=== PATIENT | male | born 1990 | race American Indian/Alaskan Native ===

== ENCOUNTER 2017-03-30 15:57 | Observation (INO) | payer SELFPAY ==
[2017-03-30] MEDS ORDERED: Sodium Chloride 0.9% 1,000 ML IV STA ×2 (16:15→18:07)
[2017-03-30 16:36] LABS: VENOUS BLOOD GAS BASE EXCESS 0.7 mmol/L (0.0-2.0); VENOUS BLOOD GAS PCO2 43 mmHg (40-60); VENOUS BLOOD PH 7.39 (7.32-7.43)
[2017-03-30 16:37] LABS: BASO % 0.2 % (0.0-2.0); EOS % 0.2 % (0.0-4.0); HEMATOCRIT 41.1 % (35.0-51.0); LYMPH # 0.9 K/uL (1.0-4.3); LYMPH % 9.4 % (20.0-40.0); MEAN CELL VOLUME 88.2 fl (80.0-94.0); MEAN CORPUSCULAR HGB CONC 32.9 g/dL (33.0-37.0); MEAN PLATELET VOLUME 6.9 fl (7.2-11.7); MONO # 1.3 K/uL (0.0-0.8); MONO % 13.5 % (0.0-10.0); NEUT # 7.3 K/uL (1.8-7.0); NEUT % 76.7 % (50.0-75.0); NRBC % 0.1 % (0.0-0.0); PLATELET COUNT 358 K/uL (130-400); RED CELL DISTRIBUTION WIDTH 13.2 % (11.5-14.5); WHITE BLOOD COUNT 9.5 K/uL (4.8-10.8)
[2017-03-30 16:48] LABS: ALB/GLOB RATIO 1.3 (1.0-2.1); ALKALINE PHOSPHATASE 74 U/L (38-126); ALT/SGPT 43 U/L (21-72); AST/SGOT 33 U/L (17-59); BILIRUBIN,TOTAL 0.8 mg/dl (0.2-1.3); BLOOD UREA NITROGEN 15 mg/dl (9-20); CARBON DIOXIDE 22 mmol/L (22-30); CHLORIDE 102 mmol/L (98-107); GFR AFRICAN-AMERICAN > 60; GLUCOSE,RANDOM 128 mg/dL (75-110); LIPASE 96 U/L (23-300); POTASSIUM 3.9 MMOL/L (3.6-5.0); SODIUM 142 mmol/l (132-148); TOTAL PROTEIN 8.1 G/DL (6.3-8.2)
--- NOTE | 2017-03-30 16:57 | ED PDOC ---
HPI: Abdomen <Joe Feng - Last Filed: 03/31/17 00:09> Chief Complaint (Provider): Diarrhea History Per: Patient History/Exam Limitations: no limitations Onset/Duration Of Symptoms: Hrs Outside of [place] travel?: No Current Symptoms Are (Timing): Still Present Context: Food Location Of Pain/Discomfort: Diffuse Associated Symptoms: Diarrhea, Loss Of Appetite. denies: Fever, Chills, Nausea , Vomiting Alleviating Factors: None. denies: OTC Meds Last Bowel Movement: Today <Ramya Giron - Last Filed: 03/31/17 16:21> Time Seen by Provider: 03/30/17 16:06 Chief Complaint (Nursing): Abdominal Pain Additional Complaint(s): The patient is a 26yo male, presents to the ED for evaluation of watery, non- bloody diarrhea x 15 episodes, since 3AM today. Patient also reports associated crampy abdominal pain, fever, and decreased appetite; pt states he took Advil for his symptoms with no relief. He denies any associated nausea, vomiting. Patient also has additional complaints of generalized malaise, fatigue, weakness , headache. Patient reports he ate some [employer] prior to the onset of his symptoms; additionally states his boyfriend ate similar food and has an "upset stomach" but his symptoms are not as worse as the patient's. He denies any recent foreign travels and at present, offers no additional medical complaints. PCP: None provided (Ramya Giron) Past Medical History <Joe Feng [place] - Last Filed: 03/31/17 00:09> Reviewed: Historical Data, Nursing Documentation, Vital Signs - Medical History PMH: No Chronic Diseases - Surgical History Other surgeries: knee surgery - Family History Family History: States: No Known Family Hx - Living Arrangements Living Arrangements: Alone - Social History Current smoker - smoking cessation education provided: No Alcohol: Occasional Drugs: Denies <Ramya Giron - Last Filed: 03/31/17 16:21> Vital Signs: Last Vital Signs Temp 101.4 F H 03/30/17 22:04 Pulse 94 H 03/30/17 18:03 Resp 26 H 03/30/17 18:03 BP 106/55 L 03/30/17 18:03 Pulse Ox 99 03/31/17 05:20 - Home Medications Home Medications: Ambulatory Orders Medication Instructions Recorded Dicyclomine [Bentyl] 20 mg PO Q12 PRN #20 tab 03/31/17 - Allergies Allergies/Adverse Reactions: Allergies Allergy/AdvReac Type Severity Reaction Status Date / Time No Known Allergies Allergy Verified 03/30/17 16:06 Review of Systems ROS Statement: Except As Marked, All Systems Reviewed And Found Negative Constitutional: Positive for: Fever, Weakness, Malaise Gastrointestinal: Positive for: Abdominal Pain, Diarrhea. Negative for: Nausea , Vomiting Neurological: Positive for: Headache <Ramya Giron - Last Filed: 03/31/17 16:21> Physical Exam - Reviewed Nursing Documentation Reviewed: Yes Vital Signs Reviewed: Yes - Physical Exam Appears: Positive for: Non-toxic, In Acute Distress (mild painful distress and tired appearing) Head Exam: Positive for: ATRAUMATIC, NORMOCEPHALIC Skin: Positive for: Warm, Dry Eye Exam: Positive for: EOMI, PERRL ENT: Positive for: Other (tacky muc membranes). Negative for: Pharyngeal Erythema, Tonsillar Exudate Neck: Positive for: Painless ROM, Supple Cardiovascular/Chest: Positive for: Chest Non Tender, Tachycardia. Negative for : Murmur Respiratory: Positive for: Normal Breath Sounds. Negative for: Wheezing Gastrointestinal/Abdominal: Positive for: Bowel Sounds, Soft, Tenderness ( diffuse). Negative for: Mass, Distended, Guarding, Rebound Back: Positive for: Normal Inspection. Negative for: Decreased ROM Extremity: Positive for: Normal ROM. Negative for: Deformity Lymphatic: Negative for: Adenopathy Neurologic/Psych: Positive for: Alert. Negative for: Motor/Sensory Deficits <Ramya Giron - Last Filed: 03/31/17 16:21> - Laboratory Results Result Diagrams: 03/30/17 16:30 03/30/17 16:30 <Joe Feng - Last Filed: 03/31/17 00:09> - Laboratory Results Result Diagrams: 03/30/17 16:30 03/30/17 16:30 - ECG O2 Sat by Pulse Oximetry: 99 (RA) Pulse Ox Interpretation: Normal <Ramya Giron - Last Filed: 03/31/17 16:21> ED OBSERVATION <Ramya Giron - Last Filed: 03/31/17 16:21> - Observation admission statement Patient is being placed in observation because:: Abdominal pain dehydration with need for serial abdominal exams and IV hydration (Ramya Giron) - Progress Note Progress Note: Time: 1614 Impression: Diarrhea, abdominal pain, fever Differential: Dehydration, sepsis, enteritis, colitis Plan: -- Labs -- IV Fluids -- Benadryl 50 mg PO -- Tylenol 975 mg PO -- Toradol 15 mg IV 1800 Patient reports feels better but continues to have some pain. Also has not been able to urinate yet. Additional fluids ordered. Bloodwork demonstrate dehydration. No emergently significant abnormalities. 2100 Pt reports feeling weak. Still unable to urinate, but has had large amount of watery diarrhea in ER. 2200 Fever and pain returned. CT ordered as well as antipyretics. [address] Feng pending CT, reassessment and final ER disposition Scribe Attestation: Documented by Alysia Calles, acting as a scribe for Ramya Giron MD. Provider Scribe Attestation: All medical record entries made by the Scribe were at my direction and personally dictated by me. I have reviewed the chart and agree that the record accurately reflects my personal performance of the history, physical exam, medical decision making, and the department course for this patient. I have also personally directed, reviewed, and agree with the discharge instructions and disposition. (Ramya Giron) Disposition - Patient ED Disposition Is Patient to be Admitted: Transfer of Care - Disposition Disposition Time: 00:00 <Joe Feng - Last Filed: 03/31/17 00:09> - Disposition Disposition Time: 17:10 Patient Signed Over To: Joe Feng <Ramya Giron - Last Filed: 03/31/17 16:21> - Clinical Impression Clinical Impression: Enteritis - Disposition Condition: STABLE
[2017-03-30 18:04] VITALS: BP 106/55; PULSE 94; RESP 26
[2017-03-30 18:09] VITALS: O2SAT 99
[2017-03-30 18:52] LABS: LARGE PLATELETS PRESENT; NEUTROPHIL 70 % (42-75); TOTAL CELLS COUNTED 100
[2017-03-30] MEDS ORDERED: Atropine-Diphenoxylate 0.025-2.5 mg Tab PO STA (21:13)
[2017-03-30 22:04] VITALS: TEMP 101.4
[2017-03-30] MEDS ORDERED: Iohexol 300 100 ML IJ ONE (22:40)
[2017-03-30] MEDS ORDERED: Sodium Chloride 0.9% 50 ML IV ONE (22:40)
--- NOTE | 2017-03-31 00:12 | ED PDOC ---
- Laboratory Results Result Diagrams: 03/30/17 16:30 03/30/17 16:30 - ECG O2 Sat by Pulse Oximetry: 99 (RA) Medical Decision Making Medical Decision Makin03/31/17 00:00 Patient signed over to me by Dr. Giron pending CT and reevaluation. CT Abdomen and Pelvis with IV contrast Lower thorax: There is minimal bibasilar atelectasis. ABDOMEN: Liver: There is a sub-CM hypodensity in the left lobe of the liver which is too small to adequately characterize. Gallbladder and bile ducts: The gallbladder is normal. No calcified stones. No ductal dilation. Pancreas: The pancreas is normal. No ductal dilation. Spleen: The spleen is normal. Adrenals: The adrenal glands are normal. Kidneys and ureters: The kidneys are normal. No hydronephrosis. Stomach and bowel: There is fluid throughout the colon and rectum compatible with diarrhea. Stomach is decompressed. There is no evidence of intestinal obstruction. No mucosal thickening. Appendix: A normal appendix is identified. PELVIS: Bladder: Bladder is decompressed. Reproductive: Unremarkable as visualized. ABDOMEN and PELVIS: Intraperitoneal space: There is no evidence of free intraperitoneal fluid. There is no free intraperitoneal air. Bones/joints: No acute fracture. No dislocation. Soft tissues: Unremarkable. Vasculature: The aorta is normal. No abdominal aortic aneurysm. Lymph nodes: There is no evidence of lymphadenopathy. IMPRESSION: 1. There is fluid throughout the colon and rectum compatible with diarrhea. 2. Additional incidental and/or chronic findings as described. 03/31/17 01:10 Lab and imaging results explained at length to the patient. He is stable and reports he is ready to be discharged home. He will follow up in 2-3 days with his PMD. Diagnosis: Acute enteritis Scribe Attestation: Documented by Yvon Yusuf acting as a scribe for Joe Feng MD. MD [place] Attestation: All medical record entries made by the Scribe were at my direction and personally dictated by me. I have reviewed the chart and agree that the record accurately reflects my personal performance of the history, physical exam, medical decision making, and the department course for this patient. I have also personally directed, reviewed, and agree with the discharge instructions and disposition. Disposition - Clinical Impression Clinical Impression: Enteritis - POA Present On Arrival: None - Disposition Disposition: Routine/Home Disposition Time: 01:15 Condition: STABLE
--- NOTE | 2017-03-31 00:42 | CT ---
EXAM: CT Abdomen and Pelvis With Intravenous Contrast CLINICAL HISTORY: 26 years old, male; Pain; Abdominal pain; Generalized; Additional info: Abd pain diarrhea TECHNIQUE: Axial computed tomography images of the abdomen and pelvis with intravenous contrast. All CT scans at this facility use one or more dose reduction techniques, viz.: automated exposure control; ma/kV adjustment per patient size (including targeted exams where dose is matched to indication; i.e. head); or iterative reconstruction technique. Coronal and sagittal reformatted images were created and reviewed. CONTRAST: 90 mL of omni paque administered intravenously. COMPARISON: No relevant prior studies available. FINDINGS: Lower thorax: There is minimal bibasilar atelectasis. ABDOMEN: Liver: There is a sub-CM hypodensity in the left lobe of the liver which is too small to adequately characterize. Gallbladder and bile ducts: The gallbladder is normal. No calcified stones. No ductal dilation. Pancreas: The pancreas is normal. No ductal dilation. Spleen: The spleen is normal. Adrenals: The adrenal glands are normal. Kidneys and ureters: The kidneys are normal. No hydronephrosis. Stomach and bowel: There is fluid throughout the colon and rectum compatible with diarrhea. Stomach is decompressed. There is no evidence of intestinal obstruction. No mucosal thickening. Appendix: A normal appendix is identified. PELVIS: Bladder: Bladder is decompressed. Reproductive: Unremarkable as visualized. ABDOMEN and PELVIS: Intraperitoneal space: There is no evidence of free intraperitoneal fluid. There is no free intraperitoneal air. Bones/joints: No acute fracture. No dislocation. Soft tissues: Unremarkable. Vasculature: The aorta is normal. No abdominal aortic aneurysm. Lymph nodes: There is no evidence of lymphadenopathy. IMPRESSION: 1. There is fluid throughout the colon and rectum compatible with diarrhea. 2. Additional incidental and/or chronic findings as described.
== END 2017-03-31 01:24 | disposition home or self-care (01) ==
LOC: H.ER 15:57 → H.EROBSV 17:09
PROVIDERS: ADMIT Emergency Medicine; ATTEND Emergency Medicine
DX: K52.9 Noninfective gastroenteritis and colitis, unspecified (principal); R50.9 Fever, unspecified
CPT/HCPCS: 74177; 80053; 82803; 83690; 85025; 87040; 87045; 87177; 87209; 96361; 96374; 99284; G0378; J1885; J7040; J7042; Q9967

== ENCOUNTER 2018-08-01 18:54 | Emergency (ER) | payer BC, MEDICAID ==
[2018-08-01 19:03] VITALS: O2SAT 100
--- NOTE | 2018-08-01 19:30 | ED PDOC ---
History of Present Illness History of Present Illness: 28 y/o male with no significant PMHx presents to the ED for evaluation of a headache, onset three days ago. Patient reports headache is associated with a subjective fever, body aches, rhinorrhea, sore throat, chills and nausea today. Otherwise, patient denies cough, congestion, vomiting, diarrhea, recent sick contacts, shortness of breath, abdominal pain, taking medications for symptom relief and receiving this year's flu vaccination. Of note, patient reports of taking antibiotics (Penicllin VK) for a tooth infection prescribed to him by his dentist. Patient states tooth infection is no longer painful and thus stopped taking his antibiotic medication. PMD: No Provider HPI: Influenza Time Seen by Provider: 08/01/18 19:10 Chief Complaint: Fever Chief Complaint (Provider): Fever History Per: Patient Exam Limitations: no limitations Have you had recent travel within the past 21 days to any of: No Onset/Duration Of Symptoms: Days (x3) Symptoms include: fever, headache, bodyaches, sore throat. denies: cough, nasal congestion, vomiting, diarrhea Sick Contacts (Context): None Hx Influenza Vaccination: No Past Medical History Reviewed: Historical Data, Nursing Documentation, Vital Signs Vital Signs: Last Vital Signs Temp 102.6 F H 08/01/18 19:02 Pulse 122 H 08/01/18 19:02 Resp 20 08/01/18 19:02 BP 120/76 08/01/18 19:02 Pulse Ox 100 08/01/18 19:02 - Medical History PMH: No Chronic Diseases - Surgical History Surgical History: No Surg Hx - Family History Family History: States: Unknown Family Hx - Home Medications Home Medications: Ambulatory Orders Medication Instructions Recorded Dicyclomine [Bentyl] 20 mg PO Q12 PRN #20 tab 03/31/17 Acetaminophen with Codeine 1 each PO QID PRN #6 tablet 05/11/17 [Tylenol with Codeine #3 Tablet] RX: Ibuprofen [Motrin Tab] 600 mg PO QID PRN #30 tab 05/11/17 - Allergies Allergies/Adverse Reactions: Allergies Allergy/AdvReac Type Severity Reaction Status Date / Time No Known Allergies Allergy Verified 08/01/18 19:03 Review of Systems ROS Statement: Except As Marked, All Systems Reviewed And Found Negative Constitutional: Positive for: Fever, Chills, Other ENT: Positive for: Nose Discharge, Throat Pain (body aches). Negative for: Nose Congestion Respiratory: Negative for: Cough, Shortness of Breath Gastrointestinal: Positive for: Nausea. Negative for: Vomiting, Abdominal Pain, Diarrhea Physical Exam - Reviewed Nursing Documentation Reviewed: Yes Vital Signs Reviewed: Yes - Physical Exam Appears: Positive for: Uncomfortable (moving constantly) Head Exam: Positive for: ATRAUMATIC Skin: Positive for: Normal Color, Warm, Dry Eye Exam: Positive for: Normal appearance, EOMI, PERRL ENT: Positive for: Pharynx Is (clear), Other (Cavity to the first molar of the right lower jaw noted) Neck: Positive for: Normal, Painless ROM, Supple (Normal Cervical Nodes) Cardiovascular/Chest: Positive for: Regular Rate, Rhythm. Negative for: Murmur, Bradycardia, Tachycardia Respiratory: Positive for: Normal Breath Sounds. Negative for: Respiratory Distress Gastrointestinal/Abdominal: Positive for: Normal Exam, Soft. Negative for: Tenderness Extremity: Positive for: Normal ROM. Negative for: Deformity Neurologic/Psych: Positive for: Alert, Oriented. Negative for: Motor/Sensory Deficits Medical Decision Making Medical Decision Making: Time: 1925 Impression: Flu-like symptoms Differentials include but not limited to influenza, strep, pharyngitis and a possible dental infection Plan: -- Reglan 10 mg PO -- Toradol 15 mg IM -- Influenza A B -- Rapid Strep Group A Antigen Scribe Attestation: Documented by Roberth Kumar, acting as a scribe for Starr Lawson MD. Provider Scribe Attestation: All medical record entries made by the Scribe were at my direction and personally dictated by me. I have reviewed the chart and agree that the record accurately reflects my personal performance of the history, physical exam, medical decision making, and the department course for this patient. I have also personally directed, reviewed, and agree with the discharge instructions and disposition. - ECG O2 Sat by Pulse Oximetry: 100 (RA) Pulse Ox Interpretation: Normal - Progress Re-evaluation Time: 21:38 Condition: Re-examined, Improved Disposition - Clinical Impression Clinical Impression: Influenza-like symptoms, Pain, dental - Patient ED Disposition Is Patient to be Admitted: No Doctor Will See Patient In The: Office Counseled Patient/Family Regarding: Studies Performed, Diagnosis, Need For Followup - Disposition Referrals: formerly [facility] [Outside] Disposition: Routine/Home Disposition Time: 21:00 Condition: IMPROVED Additional Instructions: Take ibuprofen for fever and pain. Continue taking your antibiotics. ARASH VELAZQUEZ, thank you for letting us take care of you today. Your provider was Starr Lawson MD and you were treated for HEADACHE,NAUSEA. The emergency medical care you received today was directed at your acute symptoms. If you were prescribed any medication, please fill it and take as directed. It may take several days for your symptoms to resolve. Return to the Emergency Department if your symptoms worsen, do not improve, or if you have any other problems. Please contact your doctor or call one of the physicians/clinics you have been referred to that are listed on the Patient Visit Information form that is included in your discharge packet. Bring any paperwork you were given at discharge with you along with any medications you are taking to your follow up visit. Our treatment cannot replace ongoing medical care by a primary care prov ider outside of the emergency department. Thank you for allowing the [facility] team to be part of your care today. If you had an X-Ray or CT scan: A Radiologist will review the ED reading if any change in treatment is needed we will contact you. If you had a blood, urine, or wound culture: It will take several days for the results, if any change in treatment is needed we will contact you. If you had an STI test: It will take 48 hours for the results. Please call after 1 week if you have not heard back. Instructions: Viral Syndrome (DC), Dental Pain (DC)
[2018-08-01 21:51] VITALS: BP 119/83; PULSE 83; RESP 15; TEMP 99.3
== END 2018-08-01 21:51 | disposition home or self-care (01) ==
LOC: H.ER 18:54
DX: J11.1 Influenza due to unidentified influenza virus with other respiratory manifestations (principal); K08.89 Other specified disorders of teeth and supporting structures
CPT/HCPCS: 87070; 87430; 87804; 96372; 99284; J1885